=== PATIENT | female | born 2000 | race Caucasian/White ===

== ENCOUNTER → 2021-02-22 | Outpatient (CLI) | payer OTHER | END | disposition home or self-care (01) | LOC: NPLAB 15:01 | PROVIDERS: ATTEND Nurse Practitioner Adult Health | DX: R05 Cough (principal); R51.9 Headache, unspecified; R09.81 Nasal congestion; R07.0 Pain in throat; Z20.822 Contact with and (suspected) exposure to COVID-19 | CPT/HCPCS: 87426 ==